=== PATIENT | male | born 1985 | race Caucasian/White ===

== ENCOUNTER 2017-10-28 21:27 | Emergency (ER) | payer OTHER, SELFPAY ==
[2017-10-28 21:29] VITALS: BP 148/86; PULSE 95; RESP 17; TEMP 36.4; O2SAT 99; BMI 25.5
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
[2017-10-28] MEDS: HYDROcodone Bitartrate/Apap 5/325 Tablet PO (22:02)
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
[2017-10-28 23:01] VITALS: RESP 16
--- NOTE | 2017-10-28 23:01 | ED.RN ---
REVIEWED D/C INSTRUCTIONS, FOLLOW UP CARE, PRESCRIPTIONS, AND S/S THAT WOULD WARRANT A RETURN TO THE ED WITH PT. PT VERBALIZED AN UNDERSTANDING AND DENIES FURTHER QUESTIONS FOR THIS RN. PT SKIN P/W/D, RESP EVEN AND UNLABORED, PT AO X 3, NO DISTRESS NOTED. PT AMBULATED OUT OF ED, GAIT STEADY.
== END 2017-10-28 23:02 | disposition home or self-care (01) ==
LOC: ED 22:39
PROVIDERS: Emergency Provider Emergency Medicine
DX: S16.1XXA Strain of muscle, fascia and tendon at neck level, initial encounter (principal); S40.012A Contusion of left shoulder, initial encounter; S20.212A Contusion of left front wall of thorax, initial encounter; S80.02XA Contusion of left knee, initial encounter; M54.9 Dorsalgia, unspecified; R51 Headache; V67.6XXA Passenger in heavy transport vehicle injured in collision with fixed or stationary object in traffic accident, initial encounter; Y93.9 Activity, unspecified; Y92.9 Unspecified place or not applicable; Y99.9 Unspecified external cause status; Z72.0 Tobacco use
CPT/HCPCS: 71101; 73030; 73562; 99283

== ENCOUNTER 2018-05-03 00:14 | Emergency (ER) | payer SELFPAY ==
[2018-05-03 00:16] VITALS: BP 149/91; PULSE 89; RESP 16; TEMP 36.8; O2SAT 99; BMI 21.4
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
[2018-05-03] MEDS: Smz/Tmp Ds Tablet 1 TABLET PO (01:23)
[2018-05-03] MEDS: Cephalexin 250 MG Capsule 500 MG PO (01:23)
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
--- NOTE | 2018-05-03 01:48 | ED.DEP ---
ED Disposition - Plan for ED Patient: Chief Complaint: Wound Instructions: ED Bursitis, ED Infec Skin Cellulitis Prescriptions: Cephalexin [Keflex] 500 mg PO Q6 #40 cap Smz/Tmp Ds [Bactrim Ds] 1 tab PO BID #20 tab Referrals: Care Physician,No Primary [Primary Care Provider] - Bill Ayala MD [STAFF PHYSICIAN] -
[2018-05-03 01:59] VITALS: RESP 16
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
== END 2018-05-03 01:59 | disposition home or self-care (01) ==
LOC: ED 00:51
PROVIDERS: Emergency Provider Emergency Medicine
DX: M71.162 Other infective bursitis, left knee (principal); M00.9 Pyogenic arthritis, unspecified; S81.042A Puncture wound with foreign body, left knee, initial encounter; W22.09XA Striking against other stationary object, initial encounter; Y93.9 Activity, unspecified; Y92.9 Unspecified place or not applicable; Y99.9 Unspecified external cause status; R11.0 Nausea; Z72.0 Tobacco use
CPT/HCPCS: 73564; 99283